=== PATIENT | male | born 1980 | race Caucasian/White ===

== ENCOUNTER 2017-11-16 22:22 | Emergency (ER) | payer BC ==
[~2017-11-16] VITALS: Ht 182.9 cm; Wt 72.7 kg
[~2017-11-16 22:22] MED LIST: CYCLOBENZAPRINE10 MG PO; ERYTHROMYCIN O3.5 GM RIGHT EYE; INDOCIN25 MG PO; LIDODERM 5% P1 PATCH TD; MEDROL DOSEPAK4 MG PO; NAPROSYN500 MG PO; NORCO 5/3251 TABLET PO; NORCO 7.5/321 TABLET PO; PEPCID20 MG PO; PHENERGAN12.5 M1 PO; PREDNISONE10 M1 PO; TRAMADOL HCL50 MG PO; TYLENOL WITH C1 EACH PO
[2017-11-17 01:27] LABS: HEMATOCRIT 49.7 % (38.0-50.0); MCH 29.2 PG (29.0-34.0); MCHC 34.2 G/DL (30.0-36.0); MCV 85.4 FL (86-99); PLATELET COUNT 297 K/uL (156-360); RBC DIS.WIDTH-CV 12.3 % (11.8-14.6); RED BLOOD COUNT 5.82 M/uL (4.00-5.50); WHITE BLOOD COUNT 7.6 K/uL (4.1-10.2)
[2017-11-17 01:41] LABS: ALBUMIN 4.5 g/dL (3.2-4.8)
[2017-11-17 01:42] LABS: CHLORIDE 101 mEq/L (99-109); POTASSIUM 3.9 mEq/L (3.7-5.4); SODIUM 140 mEq/L (136-147)
[2017-11-17 01:44] LABS: GLUCOSE 104 mg/dL (70-99); TOTAL PROTEIN 7.3 g/dL (6.4-8.3)
[2017-11-17 01:47] LABS: ALKALINE PHOSPHATASE 94 IU/L (3-129); CREATININE 1.2 mg/dL (0.6-1.3); GFR ESTIMATE (CALCULATED) > 59 mL/min/ (58.99-99999)
[2017-11-17 01:49] LABS: AST (GOT) 25 IU/L (2-34); UREA NITROGEN (BUN) 19 mg/dL (9-23)
[2017-11-17 01:50] LABS: ALT (GPT) 44 IU/L (3-49)
[2017-11-17 02:01] LABS: APPEARANCE CLEAR ((CLEAR)); BILIRUBIN NEGATIVE; BLOOD NEGATIVE; COLOR YELLOW ((YELLOW)); GLUCOSE (STRIP) NEGATIVE; KETONES NEGATIVE; LEUKOCYTES NEGATIVE; NITRITE NEGATIVE; PROTEIN (STRIP) NEGATIVE; SPECIFIC GRAVITY 1.024 (1.000-1.030); UCUL ADDED? NO
[2017-11-17 02:23] LABS: AMPHETAMINE NEGATIVE (500 ng/mL); BARBITURATES NEGATIVE (200 ng/mL); BENZODIAZEPINES NEGATIVE (150 ng/mL); BUPRENORPHINE NEGATIVE (10 ng/mL); COCAINE NEGATIVE (150 ng/mL); METHADONE NEGATIVE (200 ng/mL); METHAMPHETAMINE NEGATIVE (500 ng/mL); OPIATES (MORPHINE) NEGATIVE (100 ng/mL); OXYCODONE NEGATIVE (100 ng/mL); PROPOXYPHENE NEGATIVE (300 ng/mL); TRICYCLIC ANTIDEPRESSANTS NEGATIVE (300 ng/mL)
[2017-11-17 02:29] LABS: PHENCYCLIDINE NEGATIVE (25 ng/mL); THC CANNABINOIDS PRESUMPTIVE POSITIVE (50 ng/mL)
[2017-11-17] MEDS ORDERED: ROBAXIN750 MG PO (02:39)
[2017-11-17] MEDS ORDERED: PERCOCET 5/31 TABLET PO (02:39)
[2017-11-17] MEDS ORDERED: MEDROL DOSEPAK4 MG PO (02:39)
[2017-11-17 02:53] VITALS: BP 122/83
== END 2017-11-17 02:56 | disposition home or self-care (01) ==
LOC: EME 22:22
PROVIDERS: Physician Assistant
DX: M54.5 Low back pain (principal); Z87.442 Personal history of urinary calculi; K21.9 Gastro-esophageal reflux disease without esophagitis; J45.909 Unspecified asthma, uncomplicated
CPT/HCPCS: 80053; 81003; 84999; 85027; 99281; 99284; J7512